=== PATIENT | male | born 1960 | race Hispanic/Latino ===

== ENCOUNTER → 2018-11-09 | Outpatient (CLI) | payer BC, OTHER ==
[~2018-11-09] VITALS: Ht 170.2 cm; Wt 78.0 kg
[~2018-11-09] MED LIST: REGADENOSON 0.4 MG/5 ML PF SYG IVP SCH
== END | disposition home or self-care (01) ==
LOC: SHCH 08:11
PROVIDERS: ATTEND Internal Medicine Cardiovascular Disease
DX: I25.10 Atherosclerotic heart disease of native coronary artery without angina pectoris (principal)
CPT/HCPCS: 78452; 93017; 96374; A9500 ×2; J2785

== ENCOUNTER → 2024-04-09 | Outpatient (CLI) | payer OTHER ==
--- NOTE | 2024-04-13 16:50 | HMCSR ---
APPROVED REPORT EXAM: Two-dimensional and M-mode echocardiogram with Doppler and color Doppler. INDICATION ICD: Z45.010 2D Dimensions RVDd4.6 cmLVEF(%)53.6 (>50%)LVED Vol(simp.)144.0 mL IVSd0.8 (0.7-1.1cm)FS(%)28 %LVES Vol(simp.)70.4 mL LVDd5.7 (3.8-5.6cm)LA (2D)4.2 (1.6-4.0cm)LVEF(%, simp.)51 % PWd0.8 (0.7-1.1cm)Ao Root(2D)2.9 (2.0-3.7cm)LA ESV INDEX (4CH)29.50 mL/m2 IVSs1.0 cmLVOT diam2.5 (1.8-2.4cm)LA ESV INDEX (2CH)36.30 mL/m2 LVDs4.1 (2.5-4.0cm)LA ESV INDEX (BP)34.80 mL/m2 PWs1.0 cm M-Mode Dimensions EPSS1.4 cm LA (MM)4.3 (1.6-4.0cm) Ao Root(MM)3.3 (2.0-3.7cm) Aortic Valve AoV VTI0.2 mAo Mean GR3.0 mmHgLVOT VTI0.13 m HALI (VMAX)2.9 cm2AVA (VTI) 2.9 cm2 Mitral Valve MV E Vmax50.0 cm/sDECEL Rrmq104 ms P 1/2 T49 ms MVA (PHT)4.5 cm2 TDI E/E' Medial9.1E/E' Lateral5.5 Medial E' Peak V5.50 cm/sLateral E' Peak V9.10 cm/s Pulmonary Valve PV Vmax0.8 m/s PV Peak GR2.7 mmHg Tricuspid Valve TR Vmax2.3 m/sRAP (EST) 3 baLqACVT64.7 mmHg TR Peak GR21.7 mmHg Left Ventricle The left ventricle is normal size. There is normal left ventricular wall thickness. The LVEF is 45-50 %. The LV diastolic function was unable to be assessed due to atrial arrhythmia. Right Ventricle The right ventricle is moderately dilated. Right ventricular systolic function is borderline reduced. Device lead is present in the right ventricle. Atria The left atrium is borderline dilated. The right atrium is moderately dilated. Aortic Valve Aortic valve is trileaflet and opens well. There is a trace of turbulent flow between the left garza ry cusp and pulmonary artery of unclear significance. No aortic regurgitation is present. There is no aortic valvular stenosis. Mitral Valve The mitral valve is normal in structure. There is mild mitral valve regurgitation noted. There is no mitral valve stenosis. Tricuspid Valve The tricuspid valve is normal in structure. There is trace of tricuspid valve regurgitation noted. Pulmonic Valve The pulmonary valve is normal in structure. There is no pulmonic valvular regurgitation. Great Vessels The aortic root is normal in size. The IVC is normal in size and collapses >50% with inspiration. Pericardium There is no pericardial effusion. Other Information Quality : Adequate Conclusion The LVEF is 45-50%. The LV diastolic function was unable to be assessed due to atrial arrhythmia. The right ventricle is moderately dilated. Right ventricular systolic function is borderline reduced. Device lead is present in the right ventricle. The left atrium is borderline dilated. The right atrium is moderately dilated. Aortic valve is trileaflet and opens well. There is a trace of turbulent flow between the left coronary cusp and pulmonary artery of unclear sig nificance. Rhythm is ventricular pacing with AV dissociation, with frequent premature beats.
== END | disposition home or self-care (01) ==
LOC: SHCH 08:12
PROVIDERS: ATTEND Internal Medicine Cardiovascular Disease
DX: Z45.010 Encounter for checking and testing of cardiac pacemaker pulse generator [battery] (principal); I34.0 Nonrheumatic mitral (valve) insufficiency
CPT/HCPCS: 93306

== ENCOUNTER → 2024-05-04 | Outpatient (CLI) | payer OTHER ==
[~2024-05-04] VITALS: Ht 170.2 cm; Wt 80.4 kg
[~2024-05-04] MED LIST changes: +CLOP75TA32 PO; +IMIP25TA12 PO; +LEFL20TA22 PO; +MULT-1289 PO; +OLME20TA68 PO; -REGADENOSON 0.4 MG/5 ML PF SYG IVP SCH; +ROSU20TA98 PO; +TAMS-1 PO; +TRAM50TA4 PO; +VITAMIN B12 PO
[2024-05-04 11:39] VITALS: BP 128/84; PULSE 68; RESP 15; TEMP 97.9
[2024-05-04 12:28] LABS: BASOPHILS # (AUTO) 0.08 K/uL (0.00-0.20); EOSINOPHILS # (AUTO) 0.34 K/uL (0.00-0.70); EOSINOPHILS % (AUTO) 4.4 % (0.0-8.0); HEMATOCRIT 48.4 % (42-54); IMMATURE GRANULOCYTE ABSOLUTE 0.02 K/uL (0-1); LYMPHOCYTES # (AUTO) 1.7 K/uL (1.0-4.8); LYMPHOCYTES % (AUTO) 22.3 % (21.0-51.0); MEAN CORPUSCULAR HEMOGLOBIN 27.2 pg (27.0-33.0); MEAN CORPUSCULAR HGB CONC 31.6 g/dL (32.0-36.0); MONOCYTES # (AUTO) 0.7 K/uL (0.1-1.0); MONOCYTES % (AUTO) 8.6 % (3.0-13.0); NEUTROPHILS # (AUTO) 4.9 K/uL (1.8-7.7); NEUTROPHILS % (AUTO) 63.4 % (40.0-77.0); PLATELET COUNT (AUTO) 263 K/uL (130-400); RED BLOOD CELL COUNT(AUTO) 5.63 MIL/uL (4.50-6.20); RED CELL DISTRIBUTION WIDTH 14.3 % (11.0-15.5); WHITE BLOOD COUNT (AUTO) 7.7 K/uL (4.8-10.8)
[2024-05-04 12:40] LABS: POTASSIUM 5.3 mmol/L (3.5-5.1)
[2024-05-04 12:42] LABS: INR 0.97 (0.85-1.15); PROTHROMBIN TIME 10.3 SEC (9.6-11.6)
[2024-05-04 12:43] LABS: PARTIAL THROMBOPLASTIN TIME 26.1 SEC (26.3-35.5)
--- NOTE | 2024-05-04 13:05 | EKG ---
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
== END | disposition home or self-care (01) ==
LOC: EDSTATUS 11:00 → DAH 11:00
PROVIDERS: ATTEND Internal Medicine Cardiovascular Disease
DX: Z01.810 Encounter for preprocedural cardiovascular examination (principal); I49.5 Sick sinus syndrome; Z45.010 Encounter for checking and testing of cardiac pacemaker pulse generator [battery]; Z79.899 Other long term (current) drug therapy
CPT/HCPCS: 36415; 80048; 85025; 85610; 85730; 93005

== ENCOUNTER → 2024-05-09 | Outpatient (CLI) | payer OTHER ==
[~2024-05-09] MED LIST changes: -TRAM50TA4 PO
--- NOTE | 2024-05-09 09:36 | HMCIMG ---
US ABDOMINAL COMPLETE HISTORY: Abdominal pain COMPARISON: None TECHNIQUE: Multiple transverse and longitudinal ultrasound images of the abdomen were obtained. FINDINGS: Abdominal aorta and inferior vena cava are unremarkable. The visualized portion of the pancreas is within normal limits. Liver measures 16.6 cm. Liver is echogenic consistent with liver parenchymal disease. No gallstone is seen. Common duct measures 4 mm. No evidence of gallbladder wall thickening is seen. Both kidneys are seen. Right kidney measures 10.5 x 5.9 x 4.9 cm. Left kidney measures 11 x 5.7 x 4.7 cm. There is right renal pelvic stone measuring 8 x 5 x 5 mm. No hydronephrosis is seen of the both kidneys. The spleen is grossly unremarkable. IMPRESSION: 1. No gallstone or ductal dilatation is seen. 2. No hydronephrosis is seen. Right renal pelvic stone measuring 8 x 5 x 5 mm.
== END | disposition home or self-care (01) ==
LOC: RAH 08:18
PROVIDERS: ATTEND Internal Medicine
DX: R10.11 Right upper quadrant pain (principal); R10.12 Left upper quadrant pain; R74.8 Abnormal levels of other serum enzymes
CPT/HCPCS: 76700

== ENCOUNTER 2024-05-19 05:50 | Day surgery (SDC) | payer OTHER ==
[2024-05-17 10:59] VITALS: BP 114/71; PULSE 72; RESP 18; TEMP 97.3
[2024-05-17 11:12] LABS: BASOPHILS # (AUTO) 0.08 K/uL (0.00-0.20); BASOPHILS % (AUTO) 1.2 % (0.0-5.0); EOSINOPHILS # (AUTO) 0.38 K/uL (0.00-0.70); EOSINOPHILS % (AUTO) 5.8 % (0.0-8.0); HEMATOCRIT 46.1 % (42-54); IMMATURE GRANULOCYTE ABSOLUTE 0.01 K/uL (0-1); LYMPHOCYTES # (AUTO) 1.7 K/uL (1.0-4.8); LYMPHOCYTES % (AUTO) 25.5 % (21.0-51.0); MEAN CORPUSCULAR HEMOGLOBIN 27.4 pg (27.0-33.0); MEAN CORPUSCULAR HGB CONC 31.7 g/dL (32.0-36.0); MEAN CORPUSCULAR VOLUME 86.7 fL (79-99); MONOCYTES # (AUTO) 0.6 K/uL (0.1-1.0); MONOCYTES % (AUTO) 9.5 % (3.0-13.0); NEUTROPHILS # (AUTO) 3.8 K/uL (1.8-7.7); NEUTROPHILS % (AUTO) 57.8 % (40.0-77.0); PLATELET COUNT (AUTO) 220 K/uL (130-400); RED BLOOD CELL COUNT(AUTO) 5.32 MIL/uL (4.50-6.20); RED CELL DISTRIBUTION WIDTH 14.4 % (11.0-15.5); WHITE BLOOD COUNT (AUTO) 6.5 K/uL (4.8-10.8)
[2024-05-17 11:20] LABS: POTASSIUM 5.2 mmol/L (3.5-5.1)
[2024-05-17 11:49] LABS: INR 0.99 (0.85-1.15); PROTHROMBIN TIME 10.5 SEC (9.6-11.6)
[2024-05-17 11:50] LABS: PARTIAL THROMBOPLASTIN TIME 27.3 SEC (26.3-35.5)
--- NOTE | 2024-05-17 12:44 | EKG ---
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
[2024-05-19] VITALS (10 sets, daily range): BP systolic 105–156; BP diastolic 61–72; PULSE 60–68; RESP 11–20; TEMP 97–97.3
[~2024-05-19] VITALS: Ht 170.2 cm; Wt 78.5 kg
[2024-05-19] MEDS: 0.9%NACL 1000ML 1,000 ML IV SCH (06:44)
[2024-05-19] MEDS ORDERED: SODIUM BICARB 50MEQ 50ML VIAL 0 ML ONE (07:19)
[2024-05-19] MEDS ORDERED: LIDOCAINE HCL 1% MDV 50ML VIAL ONE (07:19)
[2024-05-19] MEDS ORDERED: ceFAZolin SODIUM 1 GM VIAL ONE (07:19)
[2024-05-19] MEDS ORDERED: BUPIvacaine/PF 0.25% 30ML VIAL IJ ONE (07:20)
[2024-05-19] MEDS ORDERED: MIDAZOLAM HCL 1 MG/ML 2ML VIAL ONE ×2 (07:43→07:59)
[2024-05-19] MEDS ORDERED: FENTanyl CITRate PF 50 MCG/1 ML 2ML VIAL ONE (07:43)
[2024-05-19] MEDS ORDERED: BACITRACIN 1 EACH PACKET TP ONE (08:08)
[2024-05-19] MEDS ORDERED: TRAM50TA4 PO (09:12)
--- NOTE | 2024-05-19 09:25 | NUR ---
DRESSING: DRESSING TO LEFT UPPER CHEST DRY/INTACT WITH NO ACTIVE BLEEDING PRESENT. NO REDNESS/SWELLING NOTED TO SURROUNDING AREA LEFT CHEST.
[2024-05-19] MEDS ORDERED: acetaMINOPHEN WITH coDEINE 1 TAB TAB PO PRN ×2 (09:30)
[2024-05-19] MEDS ORDERED: acetaMINOPHEN 500 MG TABLET PO PRN (09:30)
--- NOTE | 2024-05-19 09:40 | NUR ---
DRESSING: DRESSING TO LEFT UPPER CHEST REMAINS DRY/INTACT WITH NO ACTIVE BLEEDING PRESENT. NO REDNESS/SWELLING NOTED TO SURROUNDING AREA LEFT CHEST.
--- NOTE | 2024-05-19 09:55 | NUR ---
DRESSING: DRESSING TO LEFT UPPER CHEST REMAINS DRY/INTACT WITH NO ACTIVE BLEEDING PRESENT. NO REDNESS/SWELLING NOTED TO SURROUNDING AREA LEFT CHEST.
--- NOTE | 2024-05-19 10:10 | NUR ---
DRESSING: DRESSING TO LEFT UPPER CHEST REMAINS DRY/INTACT WITH NO ACTIVE BLEEDING PRESENT. NO REDNESS/SWELLING NOTED TO SURROUNDING AREA LEFT CHEST.
--- NOTE | 2024-05-19 10:15 | NUR ---
DRESSING: DRESSING TO LEFT UPPER CHEST REMAINS DRY/INTACT WITH NO ACTIVE BLEEDING NOTED. NO REDNESS/SWELLING NOTED TO SURROUNDING AREA.
--- NOTE | 2024-05-19 10:45 | NUR ---
DRESSING: DRESSING TO LEFT UPPER CHEST REMAINS DRY/INTACT WITH NO ACTIVE BLEEDING PRESENT. NO REDNESS/SWELLING NOTED TO SURROUNDING AREA LEFT CHEST.
--- NOTE | 2024-05-19 11:15 | NUR ---
DRESSING: DRESSING TO LEFT UPPER CHEST REMAINS DRY/INTACT WITH NO ACTIVE BLEEDING PRESENT. NO REDNESS/SWELLING NOTED TO SURROUNDING AREA LEFT CHEST.
--- NOTE | 2024-05-19 11:45 | NUR ---
DRESSING: DRESSING TO LEFT UPPER CHEST REMAINS DRY/INTACT WITH NO ACTIVE BLEEDING PRESENT. NO REDNESS/SWELLING NOTED TO SURROUNDING AREA LEFT CHEST.
--- NOTE | 2024-05-19 11:45 | NUR ---
ACTIVITY/URINARY: ASSISTED TO STANDING POSITION WITHOUT COMPLAINING OF DIZZINESS. AMBULATED TO BATHROOM SLOW STEADY GAIN AND PATIENT VOIDED QS YELLOW URINE IN TOILET. ASSISTED BACK TO BED.
--- NOTE | 2024-05-19 12:15 | NUR ---
DRESSING: DRESSING TO LEFT UPPER CHEST REMAINS DRY/INTACT WITH NO ACTIVE BLEEDING PRESENT. NO REDNESS/SWELLING NOTED TO SURROUNDING AREA LEFT CHEST.
--- NOTE | 2024-05-19 13:05 | NUR ---
DRESSING: DRESSING TO LEFT UPPER CHEST REMAINED DRY/INTACT WITH NO ACTIVE BLEEDING PRESENT. NO REDNESS/SWELLING NOTED TO SURROUNDING AREA LEFT CHEST.
== END 2024-05-19 13:05 | disposition home or self-care (01) ==
LOC: DAH 05:50
PROVIDERS: ATTEND Internal Medicine Cardiovascular Disease
DX: Z45.010 Encounter for checking and testing of cardiac pacemaker pulse generator [battery] (principal); I49.5 Sick sinus syndrome; I25.10 Atherosclerotic heart disease of native coronary artery without angina pectoris; Z95.5 Presence of coronary angioplasty implant and graft; Z98.890 Other specified postprocedural states; Z79.01 Long term (current) use of anticoagulants; Z79.899 Other long term (current) drug therapy
CPT/HCPCS: 80048; 85025; 85610; 85730; 36415; 93005; 33228; C1785; J3010; J0690; J7030; J0665; J2250 ×2; J3490; A4215; A6251; A4222; A4221; A4663; A4216; A6258; A4606; A4223 ×3; 99156; 99157